=== PATIENT | male | born 1950 | race Two or more races ===

== ENCOUNTER 2018-10-29 17:11 | Emergency (ER) | payer MEDICARE, OTHER ==
[2018-10-29 17:27] VITALS: TEMP 99.9; BMI 27.4
[2018-10-29] MEDS ORDERED: FOLIC ACID INJECTION - 1 MG, THIAMINE HCL 100 MG, MULTIVIT INJECTION ADULT 10 ML in SOD... IVPB ONE (17:47)
[2018-10-29] MEDS ORDERED: LORazepam 2 MG/ML SDV VIAL ONE (17:51)
[2018-10-29] MEDS ORDERED: RAPID SEQUENCE INTUBATION KIT NR ONE (18:02)
[2018-10-29] MEDS ORDERED: DEXTROSE 50%-WATER 25 GM/50 ML DISP.SYRIN ONE (18:02)
[2018-10-29] MEDS ORDERED: PROPOFOL 1,000,000 MCG/100 ML VIAL ONE (18:16)
[2018-10-29] MEDS ORDERED: SODIUM CHLORIDE 0.9% 1000 ML INFUS.BAG IV ONE ×2 (18:18→18:21)
[2018-10-29] MEDS ORDERED: ETOMIDATE 20 MG/10 ML AMPUL IVPUSH ONE (18:19)
[2018-10-29] MEDS ORDERED: DEXTROSE 50%-WATER - 25 GM/50 ML VIAL IVPUSH ONE (18:19)
[2018-10-29] MEDS ORDERED: ROCURONIUM BROMIDE 50 MG/5 ML VIAL IV ONE (18:20)
[2018-10-29] MEDS ORDERED: DIPHTH,PERTUSS(ACELL),TET 0.5 ML DISP.SYRIN IM ONE ×2 (18:26→20:39)
[2018-10-29] MEDS ORDERED: PROPOFOL 1,000,000 MCG/100 ML VIAL IVPB SCH (18:30)
--- NOTE | 2018-10-29 18:34 | PDOC ---
History of Present Illness <Juwan Perry - Last Filed: 10/29/18 23:31> - General History Source: EMS, Old Records Exam Limitations: Clinical Condition - History of Present Illness Initial Comments: 10/29/18 19:15 [id number] with h/o EtOH use disorder was BIBEMS from [facility] for altered mental status and fall. The extent of my initial information was gathered while trying to calm and restrain the agitated/combative patient. All of my initial information was obtained from the ED RN team as passed down from EMS, which was passed down from [facility] staff. The patient reportedly was found to be altered and unresponsive to his name while standing in a room a [facility], when he fell to the ground, possibly striking his head in the process. [facility] staff had reported that he had fallen multiple times recently at their facility and had multiple known large bruises all over the body as well as skin tears. 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) Seizures: No Thyroid Disease: No - Surgical History Abdominal Surgery: No Appendectomy: No Cardiac Surgery: No Cholecystectomy: Yes Lung Surgery: No Neurologic Surgery: No Orthopedic Surgery: No - Reproductive History Testicular Surgery: No - Suicide/Smoking/Psychosocial Hx Smoking History: Unknown if ever smoked Have you smoked in the past 12 months: Yes Number of Cigarettes Smoked Daily: 3 Cigars Per Day: 0 Information on smoking cessation initiated: No 'Breaking Loose' booklet given: 07/25/17 Hx Alcohol Use: Yes Drug/Substance Use Hx: No Substance Use Type: Alcohol, Marijuana Hx Substance Use Treatment: Yes ([facility]) <Sultana Ladd - Last Filed: 10/31/18 17:37> - Past Medical History Allergies/Adverse Reactions: Allergies Allergy/AdvReac Type Severity Reaction Status Date / Time No Known Allergies Allergy Verified 07/25/17 18:11 Home Medications: Ambulatory Orders Valsartan [Diovan] 160 mg PO DAILY #30 tablet 07/25/13 metFORMIN HCL [Glucophage -] 500 mg PO DAILY 03/18/15 Risperidone [Risperdal -] 2 mg PO HS #30 tablet 04/01/15 Review of Systems - Review of Systems Able to Perform ROS?: No (agitated/combative) <Sultana Ladd - Last Filed: 10/31/18 17:37> *Physical Exam - Vital Signs Last Vital Signs Temp Pulse Resp BP Pulse Ox 99.9 F H 58 L 11 77/58 L 100 10/29/18 17:25 10/29/18 22:37 10/29/18 22:37 10/29/18 22:37 10/29/18 22:37 <Juwan Perry - Last Filed: 10/29/18 23:31> - Vital Signs Last Vital Signs Temp Pulse Resp BP Pulse Ox 99.9 F H 114 H 26 H 108/78 98 10/29/18 17:25 10/29/18 17:25 10/29/18 17:25 10/29/18 17:25 10/29/18 17:25 - Physical Exam Comments: TRAUMA ASSESSMENT: multiple ecchymoses scattered around body with large ecchymosis to left lower flank extending from left medial paraspinous region to the area overlying the left ASIS, multiple skin tears measuring up to 3cm diameter including overlying right knee and right hindu, initially protecting airway, equal bilateral breath sounds, no flail chest, abdomen soft, pelvis stable, no thigh hematoma, no midline vertebral stepoff or deformity, pupils 2 mm and reactive to light, moving all extremities, no scalp contusion, no cephalohematoma, no scalp laceration, no raccoon eyes, no jim sign, no hemotympanum, no CSF rhinorrhea/otorrhea, no jaw malocclusion. GENERAL: obtunded, agitated, very combative, unable to answer questions, moaning noises but no coherent speech, makes fleeting eye contact but does not track examiner or seem to acknowledge that anyone else is in the room with him, responds to noxious stimuli HEENT: PERRLA, EOMI, very dry mucous membranes NECK/BACK: no spinal stepoff or deformity, no hematoma, neck supple CARDIOVASCULAR: rapid regular rate, normal S1S2, no MGR, capillary refill <2 seconds, extremities wwp, no edema LUNGS/RESPIRATORY: nononlabored respirations, lungs CTAB GI/ABDOMEN: old midline vertical scar which is well-healed, symmetric side-to- side, normoactive BS, soft, no midline pulsatile masses, no organomegaly, easily -reducible hernia noted : normal external appearance, no lesions, no swelling, non-malodorous EXTREMITIES: no muscle atrophy, no acute deformity, no edema, but multiple bruises and skin tears, one medium-sized 5cm ecchymosis overlying medial left knee SKIN: very dry, no pallor, no jaundice NEUROLOGICAL: Not alert or oriented, agitated and combative, GCS is CN II-XII grossly intact, no obvious facial droop, otherwise patient is unable to participate in exam <Sultana Ladd - Last Filed: 10/31/18 17:37> Procedures - Additional Procedures Progress: Femoral Central Line Procedure Note (U/S) INDICATION: Hypotension in critically ill patient PROCEDURE [employer]ER: Juwan Perry M.D. resident ATTENDING PHYSICIAN: Dr. Merchant In Attendance (Y/N) Y CONSENT: The procedure was performed emergently and the permission was implied because of the emergent nature. PROCEDURE SUMMARY: A time out was performed. My hands were washed immediately prior to the procedure. I wore a surgical cap, mask with protective eyewear, full gown and sterile gloves throughout the procedure. The patient was placed in supine position. Right inguinal region was prepped using chlorhexidine scrub and draped in sterile fashion using a surgical drape. The femoral pulse was palpated. The femoral vein was identified using the ultrasound. Anesthesia was achieved over the vein using 1% lidocaine. Using real-time out of plane guidance , the introducer needle was inserted into the femoral vein under direct ultrasound visualization. Venous blood was withdrawn. The syringe was removed and a guidewire was advanced into the introducer needle. The guidewire was visualized in the femoral vein by ultrasound. A small incision was made at the skin surface with a scalpel and the introducer needle was exchanged for a dilator over the guidewire. After appropriate dilation was obtained, the dilator was exchanged over the wire for a triple lumen central venous catheter. The wire was removed and the catheter was sutured in place. A bio patch impregnated sterile tegaderm was placed at the insertion site. The patient tolerated the procedure without any hemodynamic compromise. At time of procedure completion, all ports aspirated and flushed properly. Estimated blood loss is <5cc. <Juwan Perry - Last Filed: 10/29/18 23:31> ED Treatment Course - LABORATORY CBC & Chemistry Diagram: 10/29/18 19:50 10/29/18 19:53 - ADDITIONAL ORDERS Additional order review: Laboratory Results 10/29/18 10/29/18 10/29/18 22:31 21:55 19:53 PT with INR INR Anticoagulation Therapy No Result Required. Puncture Site Left radial Patient Temperature ABG pH 7.12 L* ABG pCO2 at Pt Temp 49.8 H ABG pO2 at Pt Temp 320 H ABG HCO3 15.6 L ABG O2 Sat (Measured) 99.2 H ABG O2 Content 22.9 H ABG Base Excess -14.2 L Raad Test Positive Carboxyhemoglobin 0.5 Methemoglobin 0.2 O2 Delivery Device No Result Required. Oxygen Flow Rate Yes Vent Mode A/c Vent Rate 12 Mechanical Rate Yes PEEP 5.0 Pressure Support Vent No Result Required. Sodium 135 L Potassium 5.2 H Chloride 107 Carbon Dioxide 16 L Anion Gap 12 BUN 93.2 H Creatinine 2.7 H Est GFR (CKD-EPI)AfAm 27.04 Est GFR (CKD-EPI)NonAf 23.33 POC Glucometer 127 Random Glucose 126 H Lactic Acid Calcium 7.5 L Magnesium 2.6 H Total Bilirubin 2.5 H AST 62 H ALT 52 Alkaline Phosphatase 165 H Ammonia Creatine Kinase 201 Creatine Kinase Index 3.1 CK-MB (CK-2) 6.3 H Troponin I 0.07 H Total Protein 5.7 L Albumin 2.6 L Lipase 86 Urine Color Urine Appearance Urine pH Ur Specific [place] Urine Protein Urine Glucose (UA) Urine Ketones Urine Blood Urine Nitrite Urine Bilirubin Urine Urobilinogen Ur Leukocyte Esterase Urine WBC (Auto) Urine RBC (Auto) Urine Casts (Auto) U Epithel Cells (Auto) Urine Bacteria (Auto) Salicylates Opiates Screen Methadone Screen Acetaminophen Barbiturate Screen Phencyclidine Screen Ur Amphetamines Screen MDMA (Ecstasy) Screen Benzodiazepines Screen Cocaine Screen U Marijuana (THC) Screen Alcohol, Quantitative Blood Type Antibody Screen 10/29/18 10/29/18 10/29/18 19:50 19:50 18:28 PT with INR INR Anticoagulation Therapy Cancelled Puncture Site Cancelled Patient Temperature Cancelled ABG pH Cancelled ABG pCO2 at Pt Temp Cancelled ABG pO2 at Pt Temp Cancelled ABG HCO3 Cancelled ABG O2 Sat (Measured) Cancelled ABG O2 Content Cancelled ABG Base Excess Cancelled Raad Test Cancelled Carboxyhemoglobin Cancelled Methemoglobin Cancelled O2 Delivery Device Cancelled Oxygen Flow Rate Cancelled Vent Mode Cancelled Vent Rate Cancelled Mechanical Rate Cancelled PEEP Cancelled Pressure Support Vent Cancelled Sodium Potassium Chloride Carbon Dioxide Anion Gap BUN Creatinine Est GFR (CKD-EPI)AfAm Est GFR (CKD-EPI)NonAf POC Glucometer Random Glucose Lactic Acid 2.2 H* Calcium Magnesium Total Bilirubin AST ALT Alkaline Phosphatase Ammonia Creatine Kinase Creatine Kinase Index CK-MB (CK-2) Troponin I Total Protein Albumin Lipase Urine Color Urine Appearance Urine pH Ur Specific [place] Urine Protein Urine Glucose (UA) Urine Ketones Urine Blood Urine Nitrite Urine Bilirubin Urine Urobilinogen Ur Leukocyte Esterase Urine WBC (Auto) Urine RBC (Auto) Urine Casts (Auto) U Epithel Cells (Auto) Urine Bacteria (Auto) Salicylates Opiates Screen Methadone Screen Acetaminophen Barbiturate Screen Phencyclidine Screen Ur Amphetamines Screen MDMA (Ecstasy) Screen Benzodiazepines Screen Cocaine Screen U Marijuana (THC) Screen Alcohol, Quantitative Blood Type O POSITIVE Antibody Screen Negative 10/29/18 10/29/18 10/29/18 18:28 18:28 18:28 PT with INR INR Anticoagulation Therapy Puncture Site Patient Temperature ABG pH ABG pCO2 at Pt Temp ABG pO2 at Pt Temp ABG HCO3 ABG O2 Sat (Measured) ABG O2 Content ABG Base Excess Raad Test Carboxyhemoglobin Methemoglobin O2 Delivery Device Oxygen Flow Rate Vent Mode Vent Rate Mechanical Rate PEEP Pressure Support Vent Sodium Potassium Chloride Carbon Dioxide Anion Gap BUN Creatinine Est GFR (CKD-EPI)AfAm Est GFR (CKD-EPI)NonAf POC Glucometer Random Glucose Lactic Acid 4.1 H* Calcium Magnesium Total Bilirubin AST ALT Alkaline Phosphatase Ammonia 35.20 H Creatine Kinase Creatine Kinase Index CK-MB (CK-2) Troponin I Total Protein Albumin Lipase Urine Color Urine Appearance Urine pH Ur Specific [place] Urine Protein Urine Glucose (UA) Urine Ketones Urine Blood Urine Nitrite Urine Bilirubin Urine Urobilinogen Ur Leukocyte Esterase Urine WBC (Auto) Urine RBC (Auto) Urine Casts (Auto) U Epithel Cells (Auto) Urine Bacteria (Auto) Salicylates Opiates Screen Negative Methadone Screen Negative Acetaminophen Barbiturate Screen Negative Phencyclidine Screen Negative Ur Amphetamines Screen Negative MDMA (Ecstasy) Screen Negative Benzodiazepines Screen Negative Cocaine Screen Negative U Marijuana (THC) Screen Negative Alcohol, Quantitative Blood Type Antibody Screen 10/29/18 10/29/18 10/29/18 18:28 18:28 18:22 PT with INR 17.60 H INR 1.49 H Anticoagulation Therapy Puncture Site Patient Temperature ABG pH ABG pCO2 at Pt Temp ABG pO2 at Pt Temp ABG HCO3 ABG O2 Sat (Measured) ABG O2 Content ABG Base Excess Raad Test Carboxyhemoglobin Methemoglobin O2 Delivery Device Oxygen Flow Rate Vent Mode Vent Rate Mechanical Rate PEEP Pressure Support Vent Sodium 137 Potassium 5.0 Chloride 104 Carbon Dioxide 19 L Anion Gap 13 BUN 95.0 H Creatinine 2.8 H Est GFR (CKD-EPI)AfAm 25.88 Est GFR (CKD-EPI)NonAf 22.33 POC Glucometer Random Glucose 64 L Lactic Acid Calcium 8.3 L Magnesium Total Bilirubin 2.0 H AST 56 H ALT 50 Alkaline Phosphatase 144 H Ammonia Creatine Kinase Creatine Kinase Index CK-MB (CK-2) Troponin I Total Protein 5.6 L Albumin 2.6 L Lipase 80 Urine Color Dk yellow Urine Appearance Cloudy Urine pH 5.0 D Ur Specific [place] 1.019 Urine Protein 1+ H Urine Glucose (UA) Negative Urine Ketones Negative Urine Blood Negative Urine Nitrite Negative Urine Bilirubin 1+ H Urine Urobilinogen 1.0 Ur Leukocyte Esterase Negative Urine WBC (Auto) 4 Urine RBC (Auto) 4 Urine Casts (Auto) 43 U Epithel Cells (Auto) 3.2 Urine Bacteria (Auto) 1.9 Salicylates 3.6 Opiates Screen Methadone Screen Acetaminophen 3.7 L Barbiturate Screen Phencyclidine Screen Ur Amphetamines Screen MDMA (Ecstasy) Screen Benzodiazepines Screen Cocaine Screen U Marijuana (THC) Screen Alcohol, Quantitative < 3.0 Blood Type Antibody Screen 10/29/18 17:53 PT with INR INR Anticoagulation Therapy Puncture Site Patient Temperature ABG pH ABG pCO2 at Pt Temp ABG pO2 at Pt Temp ABG HCO3 ABG O2 Sat (Measured) ABG O2 Content ABG Base Excess Raad Test Carboxyhemoglobin Methemoglobin O2 Delivery Device Oxygen Flow Rate Vent Mode Vent Rate Mechanical Rate PEEP Pressure Support Vent Sodium Potassium Chloride Carbon Dioxide Anion Gap BUN Creatinine Est GFR (CKD-EPI)AfAm Est GFR (CKD-EPI)NonAf POC Glucometer 82 Random Glucose Lactic Acid Calcium Magnesium Total Bilirubin AST ALT Alkaline Phosphatase Ammonia Creatine Kinase Creatine Kinase Index CK-MB (CK-2) Troponin I Total Protein Albumin Lipase Urine Color Urine Appearance Urine pH Ur Specific [place] Urine Protein Urine Glucose (UA) Urine Ketones Urine Blood Urine Nitrite Urine Bilirubin Urine Urobilinogen Ur Leukocyte Esterase Urine WBC (Auto) Urine RBC (Auto) Urine Casts (Auto) U Epithel Cells (Auto) Urine Bacteria (Auto) Salicylates Opiates Screen Methadone Screen Acetaminophen Barbiturate Screen Phencyclidine Screen Ur Amphetamines Screen MDMA (Ecstasy) Screen Benzodiazepines Screen Cocaine Screen U Marijuana (THC) Screen Alcohol, Quantitative Blood Type Antibody Screen 10/29/18 10/29/18 10/29/18 22:31 19:50 18:28 RBC 5.38 5.25 MCV 95.6 95.0 MCHC 32.1 32.4 RDW 16.4 H 16.2 H MPV 10.2 11.0 D Neutrophils % 97.0 H 97.2 H Lymphocytes % 1.4 L 1.6 L Monocytes % 0.8 L 1.0 L Eosinophils % 0.6 D 0.1 Basophils % 0.2 0.1 POC Glucometer 127 10/29/18 17:53 RBC MCV MCHC RDW MPV Neutrophils % Lymphocytes % Monocytes % Eosinophils % Basophils % POC Glucometer 82 - Medications Given in the ED: ED Medications Discontinued Medications Generic Name Dose Route Start Last Admin Trade Name Darrelq PRN Reason Stop Dose Admin Dexamethasone Sodium Phosphate 10 mg 10/29/18 20:01 10/29/18 21:00 Decadron Injection - IVPUSH 10/29/18 20:02 10 mg ONCE ONE Administration Dextrose 25 gm 10/29/18 18:19 10/29/18 18:12 D50w (Vial) - IVPUSH 10/29/18 18:20 25 gm NOW ONE Administration Diphtheria/Tetanus/Acell Pertussis 0.5 ml 10/29/18 18:26 10/29/18 20:58 Boostrix - IM 10/29/18 18:27 0.5 ml .ONCE ONE Administration Etomidate 20 mg 10/29/18 18:19 10/29/18 18:08 Amidate - IVPUSH 10/29/18 18:20 20 mg ONCE ONE Administration Ceftriaxone Sodium 2,000 mg/ 50 mls @ 100 mls/hr 10/29/18 20:01 10/29/18 21: 00 Dextrose IVPB 10/29/18 20:30 100 mls/hr ONCE ONE Administration Vancomycin HCl 1,500 mg/ 500 mls @ 250 mls/hr 10/29/18 20:02 10/29/18 21:10 Dextrose IVPB 10/29/18 22:01 250 mls/hr ONCE ONE Administration Lorazepam 2 mg 10/29/18 18:22 10/29/18 17:51 Ativan Injection - IVPUSH 10/29/18 18:23 2 mg ONCE ONE Administration Rocuronium [place] 80 mg 10/29/18 18:20 10/29/18 18:11 Zemuron - IV 10/29/18 18:21 80 mg ONCE ONE Administration Sodium Chloride 1,000 ml 10/29/18 18:18 10/29/18 18:00 Normal Saline - IV 10/29/18 18:19 1,000 ml ONCE ONE Administration Sodium Chloride 1,000 ml 10/29/18 18:21 10/29/18 18:21 Normal Saline - IV 10/29/18 18:22 1,000 ml ONCE ONE Administration <Juwan Perry - Last Filed: 10/29/18 23:31> - LABORATORY CBC & Chemistry Diagram: 10/29/18 19:50 10/29/18 19:53 - ADDITIONAL ORDERS Additional order review: Laboratory Results 10/29/18 17:53 POC Glucometer 82 10/29/18 17:53 POC Glucometer 82 - RADIOLOGY Radiology Studies Ordered: Category Date Time Status HEAD CT WITHOUT CONTRAST [CT] Stat CT Scan 10/29/18 17:47 Ordered CHEST X-RAY PORTABLE* [RAD] Stat Radiology 10/29/18 17:47 Ordered <Sultana Ladd - Last Filed: 10/31/18 17:37> Medical Decision Making - Critical Care Time Total Critical Care Time (minutes): 90 Critical Care Statement: The care of this patient involved high complexity decision making to prevent further life threatening deterioration of the patient 's condition and/or to evaluate & treat vital organ system(s) failure or risk of failure. - Medical Decision Making [id number] with h/o EtOH use disorder BIBEMS from [facility] for AMS, fall. Per EMS truncated report passed down from [facility] staff, patient had witnessed fall just [employer]. He had reportedly been standing/staring off and not responding to his name just prior to the fall. This is reportedly far from his baseline. Reportedly [facility] staff had noted he has fallen multiple times recently and has many bruises. Reportedly his pupils were pinpoint but [facility] staff did not believe he had access to substances. Initial Vital Signs Temp Pulse Resp BP Pulse Ox 99.9 F H 114 H 26 H 108/78 98 10/29/18 17:25 10/29/18 17:25 10/29/18 17:25 10/29/18 17:25 10/29/18 17:25 10/29/18 18:25 I entered the patient's room at 17:35 and saw him very agitated, multiple large bruises, skin tears He is very strong, requires 4+ ED staff to hold him down, not following commands , combative. He is a danger to himself and to others and requires ativan 2 mg IV push. PIV placed and labs drawn, Ativan given IVPUSH, partial relief of agitation/ combativeness but still a danger. The patient requires additional chemical restraint (to the point of needing RSI ) as well as limb restraints x4. We transferred the patient to the code room, RSI with etomidate and rocuronium, propofol drop for sedation. Rocuronium chosen d/t extensive bruising and risk for rhabdo/hyperkalemia. Propofol chosen to potentiate JANE and raise seizure threshold. Patient was satting 100% on SpO2 monitor just prior to RSI attempt. 2 attempts made, secretions noted and suctioned, 7.5 ETT passed, inflated, secured. Bilateral equal breath sounds with good ETCO2 color change, subsequent SpO2 100% . We are very concerned about ICH in this severely altered patient given acute onset and known falls/trauma. CT scans ordered as documented below. 10/29/18 18:48 No known allergies to IV contrast per patient's prior [facility] and [facility] records. The patient is unable to consent for IV contrast but he absolutely needs it for trauma ch-scan. Physician consent signed for contrast in CT department and patient tolerates well. Laboratory Tests 10/29/18 10/29/18 10/29/18 17:53 18:22 18:28 WBC 24.6 H RBC 5.25 Hgb 16.1 Hct 49.9 H D MCV 95.0 MCH 30.7 MCHC 32.4 RDW 16.2 H Plt Count 133 L D MPV 11.0 D Absolute Neuts (auto) 24.0 H Neutrophils % 97.2 H Neutrophils % (Manual) 64.0 Band Neutrophils % 30.0 Lymphocytes % 1.6 L Lymphocytes % (Manual) 0.0 L Monocytes % 1.0 L Monocytes % (Manual) 6 Eosinophils % 0.1 Eosinophils % (Manual) 0.0 Basophils % 0.1 Basophils % (Manual) 0.0 Nucleated RBC % 0 Metamyelocytes Platelet Estimate Slt decrease Platelet Comment No clumping noted PT with INR INR Anticoagulation Therapy Puncture Site Patient Temperature ABG pH ABG pCO2 at Pt Temp ABG pO2 at Pt Temp ABG HCO3 ABG O2 Sat (Measured) ABG O2 Content ABG Base Excess Raad Test Carboxyhemoglobin Methemoglobin O2 Delivery Device Oxygen Flow Rate Vent Mode Vent Rate Mechanical Rate PEEP Pressure Support Vent Sodium Potassium Chloride Carbon Dioxide Anion Gap BUN Creatinine Est GFR (CKD-EPI)AfAm Est GFR (CKD-EPI)NonAf POC Glucometer 82 Random Glucose Lactic Acid Calcium Magnesium Total Bilirubin AST ALT Alkaline Phosphatase Ammonia Creatine Kinase Creatine Kinase Index CK-MB (CK-2) Troponin I Total Protein Albumin Lipase Urine Color Dk yellow Urine Appearance Cloudy Urine pH 5.0 D Ur Specific [place] 1.019 Urine Protein 1+ H Urine Glucose (UA) Negative Urine Ketones Negative Urine Blood Negative Urine Nitrite Negative Urine Bilirubin 1+ H Urine Urobilinogen 1.0 Ur Leukocyte Esterase Negative Urine WBC (Auto) 4 Urine RBC (Auto) 4 Urine Casts (Auto) 43 U Epithel Cells (Auto) 3.2 Urine Bacteria (Auto) 1.9 Salicylates Opiates Screen Methadone Screen Acetaminophen Barbiturate Screen Phencyclidine Screen Ur Amphetamines Screen MDMA (Ecstasy) Screen Benzodiazepines Screen Cocaine Screen U Marijuana (THC) Screen Alcohol, Quantitative Blood Type Antibody Screen 10/29/18 10/29/18 10/29/18 18:28 18:28 18:28 WBC RBC Hgb Hct MCV MCH MCHC RDW Plt Count MPV Absolute Neuts (auto) Neutrophils % Neutrophils % (Manual) Band Neutrophils % Lymphocytes % Lymphocytes % (Manual) Monocytes % Monocytes % (Manual) Eosinophils % Eosinophils % (Manual) Basophils % Basophils % (Manual) Nucleated RBC % Metamyelocytes Platelet Estimate Platelet Comment PT with INR 17.60 H INR 1.49 H Anticoagulation Therapy Puncture Site Patient Temperature ABG pH ABG pCO2 at Pt Temp ABG pO2 at Pt Temp ABG HCO3 ABG O2 Sat (Measured) ABG O2 Content ABG Base Excess Raad Test Carboxyhemoglobin Methemoglobin O2 Delivery Device Oxygen Flow Rate Vent Mode Vent Rate Mechanical Rate PEEP Pressure Support Vent Sodium 137 Potassium 5.0 Chloride 104 Carbon Dioxide 19 L Anion Gap 13 BUN 95.0 H Creatinine 2.8 H Est GFR (CKD-EPI)AfAm 25.88 Est GFR (CKD-EPI)NonAf 22.33 POC Glucometer Random Glucose 64 L Lactic Acid Calcium 8.3 L Magnesium Total Bilirubin 2.0 H AST 56 H ALT 50 Alkaline Phosphatase 144 H Ammonia 35.20 H Creatine Kinase Creatine Kinase Index CK-MB (CK-2) Troponin I Total Protein 5.6 L Albumin 2.6 L Lipase 80 Urine Color Urine Appearance Urine pH Ur Specific [place] Urine Protein Urine Glucose (UA) Urine Ketones Urine Blood Urine Nitrite Urine Bilirubin Urine Urobilinogen Ur Leukocyte Esterase Urine WBC (Auto) Urine RBC (Auto) Urine Casts (Auto) U Epithel Cells (Auto) Urine Bacteria (Auto) Salicylates 3.6 Opiates Screen Methadone Screen Acetaminophen 3.7 L Barbiturate Screen Phencyclidine Screen Ur Amphetamines Screen MDMA (Ecstasy) Screen Benzodiazepines Screen Cocaine Screen U Marijuana (THC) Screen Alcohol, Quantitative < 3.0 Blood Type Antibody Screen 10/29/18 10/29/18 10/29/18 18:28 18:28 18:28 WBC RBC Hgb Hct MCV MCH MCHC RDW Plt Count MPV Absolute Neuts (auto) Neutrophils % Neutrophils % (Manual) Band Neutrophils % Lymphocytes % Lymphocytes % (Manual) Monocytes % Monocytes % (Manual) Eosinophils % Eosinophils % (Manual) Basophils % Basophils % (Manual) Nucleated RBC % Metamyelocytes Platelet Estimate Platelet Comment PT with INR INR Anticoagulation Therapy Puncture Site Patient Temperature ABG pH ABG pCO2 at Pt Temp ABG pO2 at Pt Temp ABG HCO3 ABG O2 Sat (Measured) ABG O2 Content ABG Base Excess Raad Test Carboxyhemoglobin Methemoglobin O2 Delivery Device Oxygen Flow Rate Vent Mode Vent Rate Mechanical Rate PEEP Pressure Support Vent Sodium Potassium Chloride Carbon Dioxide Anion Gap BUN Creatinine Est GFR (CKD-EPI)AfAm Est GFR (CKD-EPI)NonAf POC Glucometer Random Glucose Lactic Acid 4.1 H* Calcium Magnesium Total Bilirubin AST ALT Alkaline Phosphatase Ammonia Creatine Kinase Creatine Kinase Index CK-MB (CK-2) Troponin I Total Protein Albumin Lipase Urine Color Urine Appearance Urine pH Ur Specific [place] Urine Protein Urine Glucose (UA) Urine Ketones Urine Blood Urine Nitrite Urine Bilirubin Urine Urobilinogen Ur Leukocyte Esterase Urine WBC (Auto) Urine RBC (Auto) Urine Casts (Auto) U Epithel Cells (Auto) Urine Bacteria (Auto) Salicylates Opiates Screen Negative Methadone Screen Negative Acetaminophen Barbiturate Screen Negative Phencyclidine Screen Negative Ur Amphetamines Screen Negative MDMA (Ecstasy) Screen Negative Benzodiazepines Screen Negative Cocaine Screen Negative U Marijuana (THC) Screen Negative Alcohol, Quantitative Blood Type O POSITIVE Antibody Screen Negative 10/29/18 10/29/18 10/29/18 19:50 19:50 19:50 WBC 28.3 H RBC 5.38 Hgb 16.5 Hct 51.4 H MCV 95.6 MCH 30.7 MCHC 32.1 RDW 16.4 H Plt Count 114 L MPV 10.2 Absolute Neuts (auto) 27.5 H Neutrophils % 97.0 H Neutrophils % (Manual) 72.0 Band Neutrophils % 24.0 Lymphocytes % 1.4 L Lymphocytes % (Manual) 1.0 L D Monocytes % 0.8 L Monocytes % (Manual) 0 L D Eosinophils % 0.6 D Eosinophils % (Manual) 1.0 D Basophils % 0.2 Basophils % (Manual) 0.0 Nucleated RBC % 0 Metamyelocytes 2 Platelet Estimate Decreased Platelet Comment No clumping noted PT with INR INR Anticoagulation Therapy Cancelled Puncture Site Cancelled Patient Temperature Cancelled ABG pH Cancelled ABG pCO2 at Pt Temp Cancelled ABG pO2 at Pt Temp Cancelled ABG HCO3 Cancelled ABG O2 Sat (Measured) Cancelled ABG O2 Content Cancelled ABG Base Excess Cancelled Raad Test Cancelled Carboxyhemoglobin Cancelled Methemoglobin Cancelled O2 Delivery Device Cancelled Oxygen Flow Rate Cancelled Vent Mode Cancelled Vent Rate Cancelled Mechanical Rate Cancelled PEEP Cancelled Pressure Support Vent Cancelled Sodium Potassium Chloride Carbon Dioxide Anion Gap BUN Creatinine Est GFR (CKD-EPI)AfAm Est GFR (CKD-EPI)NonAf POC Glucometer Random Glucose Lactic Acid 2.2 H* Calcium Magnesium Total Bilirubin AST ALT Alkaline Phosphatase Ammonia Creatine Kinase Creatine Kinase Index CK-MB (CK-2) Troponin I Total Protein Albumin Lipase Urine Color Urine Appearance Urine pH Ur Specific [place] Urine Protein Urine Glucose (UA) Urine Ketones Urine Blood Urine Nitrite Urine Bilirubin Urine Urobilinogen Ur Leukocyte Esterase Urine WBC (Auto) Urine RBC (Auto) Urine Casts (Auto) U Epithel Cells (Auto) Urine Bacteria (Auto) Salicylates Opiates Screen Methadone Screen Acetaminophen Barbiturate Screen Phencyclidine Screen Ur Amphetamines Screen MDMA (Ecstasy) Screen Benzodiazepines Screen Cocaine Screen U Marijuana (THC) Screen Alcohol, Quantitative Blood Type Antibody Screen 10/29/18 10/29/18 10/29/18 19:53 21:55 22:31 WBC RBC Hgb Hct MCV MCH MCHC RDW Plt Count MPV Absolute Neuts (auto) Neutrophils % Neutrophils % (Manual) Band Neutrophils % Lymphocytes % Lymphocytes % (Manual) Monocytes % Monocytes % (Manual) Eosinophils % Eosinophils % (Manual) Basophils % Basophils % (Manual) Nucleated RBC % Metamyelocytes Platelet Estimate Platelet Comment PT with INR INR Anticoagulation Therapy No Result Required. Puncture Site Left radial Patient Temperature ABG pH 7.12 L* ABG pCO2 at Pt Temp 49.8 H ABG pO2 at Pt Temp 320 H ABG HCO3 15.6 L ABG O2 Sat (Measured) 99.2 H ABG O2 Content 22.9 H ABG Base Excess -14.2 L Raad Test Positive Carboxyhemoglobin 0.5 Methemoglobin 0.2 O2 Delivery Device No Result Required. Oxygen Flow Rate Yes Vent Mode A/c Vent Rate 12 Mechanical Rate Yes PEEP 5.0 Pressure Support Vent No Result Required. Sodium 135 L Potassium 5.2 H Chloride 107 Carbon Dioxide 16 L Anion Gap 12 BUN 93.2 H Creatinine 2.7 H Est GFR (CKD-EPI)AfAm 27.04 Est GFR (CKD-EPI)NonAf 23.33 POC Glucometer 127 Random Glucose 126 H Lactic Acid Calcium 7.5 L Magnesium 2.6 H Total Bilirubin 2.5 H AST 62 H ALT 52 Alkaline Phosphatase 165 H Ammonia Creatine Kinase 201 Creatine Kinase Index 3.1 CK-MB (CK-2) 6.3 H Troponin I 0.07 H Total Protein 5.7 L Albumin 2.6 L Lipase 86 Urine Color Urine Appearance Urine pH Ur Specific [place] Urine Protein Urine Glucose (UA) Urine Ketones Urine Blood Urine Nitrite Urine Bilirubin Urine Urobilinogen Ur Leukocyte Esterase Urine WBC (Auto) Urine RBC (Auto) Urine Casts (Auto) U Epithel Cells (Auto) Urine Bacteria (Auto) Salicylates Opiates Screen Methadone Screen Acetaminophen Barbiturate Screen Phencyclidine Screen Ur Amphetamines Screen MDMA (Ecstasy) Screen Benzodiazepines Screen Cocaine Screen U Marijuana (THC) Screen Alcohol, Quantitative Blood Type Antibody Screen RAD/CHEST X-RAY PORTABLE* Chest: Altered mental status Single AP view of the chest reveals an endotracheal tube with tip well above arnold, NG tube tip in distal esophagus which needs to be advanced approximately 13 cm. There is a large heart, and folded aorta, prominent hilar markings and clear lung real. The ends are sharp and the soft tissues are intact. Impression: ET tube and clavicular head level. NG tube in distal esophagus. Please advance 13 cm to be in the stomach. Clear lungs. Large heart. CT/CERVICAL SPINE CT W/O CONTR Cervical spine CT without contrast Clinical impression given: status post fall Multiplanar imaging was performed. No fracture or posttraumatic malalignment is identified. Multilevel ossification of the anterior longitudinal ligament is noted. There is mild to moderate multilevel degenerative disc space narrowing. Evaluation of the prevertebral soft tissues is limited due to traversing endotracheal and nasogastric tubes in place. The paraspinal soft tissues demonstrate no obvious pathology. Impression : No fracture is seen. CT/FACIAL BONES CT W/O CONTRAST Facial bones CT without contrast Clinical information: trauma Multiplanar imaging was performed. A depressed fracture is seen involving the right nasal bone as well as the nasal bridge. Overlying soft tissue edema is noted. there is focal deformity of the osseous nasal septum ventrally which is probably chronic. No obvious associated fracture line is seen. The remaining maxillofacial and orbital osseous structures appear intact. A small amount of fluid is noted within the left mastoid air cells. A nasogastric tube is seen in place which loops within the oropharynx. An endotracheal tube is also noted. Dental/periodontal disease. Impression: Acute nasal fracture. CT/HEAD CT WITHOUT CONTRAST Cranial CT without contrast Clinical information given: altered Multiplanar imaging was performed. Intravenous contrast was not administered. No prior imaging studies are available at this facility for direct comparison. A possible small hemorrhagic cortical contusion is seen along the left frontal opercular region. This region is partially obscured due to beam hardening artifact. Correlate with follow-up CT. No CT evidence of calvarial fracture. There is no extra-axial fluid collection. No discrete infarct is identified within the limitations of CT. There is no obvious mass lesion on noncontrast imaging. The ventricles and cisterns appear unremarkable. Impression: Equivocal small left frontal hemorrhagic cortical contusion. This region is partially obscured due to beam hardening artifact arising from outside the calvarium. Correlate with follow-up CT. CT/CHEST CTA [id number] CT/ABDOMEN/PELVIS CTA W/WO CONTR Chest CT angiography Abdomen/pelvis CT angiography Clinical information given: fall, bleeding Multiplanar, multiphase imaging was performed following the intravenous administration of nonionic contrast. No prior imaging studies are available at this facility for direct comparison. Small bilateral pleural effusions are seen layering with associated mild bibasilar compressive atelectasis. No evidence of pneumothorax or pulmonary contusion. Several subtle bilateral rib fractures are noted which appear to be chronic on the basis of this exam. Correlate clinically. Probable mild cardiomegaly. No pericardial effusion is seen. There is no aortic aneurysm. No CT evidence of aortic injury. A mild T4 superior endplate compression fracture is seen without bony retropulsion. This fracture is probably subacute and less likely acute. Correlate clinically. The posterior elements appear intact. A mild chronic T12 vertebral body compression fracture is noted without bony retropulsion Concentric subcutaneous edema is seen along the length of the chest, abdomen and pelvis. An endotracheal tube is seen in place with the tip approximately 3.3 cm from the level of the tracheal bifurcation. A nasogastric tube is noted with the tip at the level of the mid to lower third of the thoracic esophagus. Looping of the nasogastric tube is seen at the level of the oropharynx on recently performed cervical spine CT. A small amount of free intraperitoneal fluid is seen within the abdomen and pelvis bilaterally which not appear to be hemorrhagic in nature. The kidneys bilaterally demonstrate numerous bilateral upper and lower pole low-attenuation foci suggestive of cortical infarcts which may be acute or chronic. The kidneys appear unremarkable in size. There is no hydronephrosis. Bilateral renal cortical cysts. 1.4 cm splenic artery aneurysm with peripheral rim calcification. There is absence of the gallbladder probably on a postsurgical basis. Correlate clinically. A small amount of air is seen within the intrahepatic and extrahepatic biliary tract possibly on a postprocedural basis. Correlate clinically. Status post ventral hernia repair. The liver, spleen, pancreas, and adrenal glands demonstrate no discrete abnormality. There is no aortic aneurysm. IMPRESSION: Small bilateral pleural effusions which appear to be nonhemorrhagic in nature. There is associated bibasilar compressive atelectasis. No pneumothorax is seen. Several subtle bilateral rib fractures are seen which are probably chronic. Correlate clinically. Mild cardiomegaly. A small amount of free fluid is seen within the abdomen and pelvis which appears to be nonhemorrhagic. Numerous bilateral renal hypodense cortical foci are noted within the upper and lower poles suggestive of infarcts which may be acute or chronic. A mild T4 vertebral body compression fracture is noted without bony retropulsion. This fracture is probably subacute and less likely acute. Correlate clinically. Follow-up imaging as clinically indicated. Mild chronic T12 vertebral body compression fracture without bony retropulsion. Concentric subcutaneous edema is visualized along the length of the chest, abdomen and pelvis. Endotracheal tube in place. A nasogastric tube is noted with the tip at the level of the mid to lower thoracic esophagus. 1.4 cm partially calcified splenic artery aneurysm. There is absence of the gallbladder which may be postsurgical. A small amount of pneumobilia is also visualized. CT/CHEST CTA [id number] CT/ABDOMEN/PELVIS CTA W/WO CONTR Chest CT angiography Abdomen/pelvis CT angiography Clinical information given: fall, bleeding Multiplanar, multiphase imaging was performed following the intravenous administration of nonionic contrast. No prior imaging studies are available at this facility for direct comparison. Small bilateral pleural effusions are seen layering with associated mild bibasilar compressive atelectasis. No evidence of pneumothorax or pulmonary contusion. Several subtle bilateral rib fractures are noted which appear to be chronic on the basis of this exam. Correlate clinically. Probable mild cardiomegaly. No pericardial effusion is seen. There is no aortic aneurysm. No CT evidence of aortic injury. A mild T4 superior endplate compression fracture is seen without bony retropulsion. This fracture is probably subacute and less likely acute. Correlate clinically. The posterior elements appear intact. A mild chronic T12 vertebral body compression fracture is noted without bony retropulsion Concentric subcutaneous edema is seen along the length of the chest, abdomen and pelvis. An endotracheal tube is seen in place with the tip approximately 3.3 cm from the level of the tracheal bifurcation. A nasogastric tube is noted with the tip at the level of the mid to lower third of the thoracic esophagus. Looping of the nasogastric tube is seen at the level of the oropharynx on recently performed cervical spine CT. A small amount of free intraperitoneal fluid is seen within the abdomen and pelvis bilaterally which not appear to be hemorrhagic in nature. The kidneys bilaterally demonstrate numerous bilateral upper and lower pole low-attenuation foci suggestive of cortical infarcts which may be acute or chronic. The kidneys appear unremarkable in size. There is no hydronephrosis. Bilateral renal cortical cysts. 1.4 cm splenic artery aneurysm with peripheral rim calcification. There is absence of the gallbladder probably on a postsurgical basis. Correlate clinically. A small amount of air is seen within the intrahepatic and extrahepatic biliary tract possibly on a postprocedural basis. Correlate clinically. Status post ventral hernia repair. The liver, spleen, pancreas, and adrenal glands demonstrate no discrete abnormality. There is no aortic aneurysm. IMPRESSION: Small bilateral pleural effusions which appear to be nonhemorrhagic in nature. There is associated bibasilar compressive atelectasis. No pneumothorax is seen. Several subtle bilateral rib fractures are seen which are probably chronic. Correlate clinically. Mild cardiomegaly. A small amount of free fluid is seen within the abdomen and pelvis which appears to be nonhemorrhagic. Numerous bilateral renal hypodense cortical foci are noted within the upper and lower poles suggestive of infarcts which may be acute or chronic. A mild T4 vertebral body compression fracture is noted without bony retropulsion. This fracture is probably subacute and less likely acute. Correlate clinically. Follow-up imaging as clinically indicated. Mild chronic T12 vertebral body compression fracture without bony retropulsion. Concentric subcutaneous edema is visualized along the length of the chest, abdomen and pelvis. Endotracheal tube in place. A nasogastric tube is noted with the tip at the level of the mid to lower thoracic esophagus. 1.4 cm partially calcified splenic artery aneurysm. There is absence of the gallbladder which may be postsurgical. A small amount of pneumobilia is also visualized. 10/29/18 20:[address] Dunbar with Cardiology for consult; likely we should not AC at this time. He recommends likely he needs no AC for 2-3 days and after that point needs neurologist and skate maker to decide. Dr. Merchant has spoken with Neurology and Nephrology in consult. Dr. Merchant has spoken with [facility] transfer [place] and the patient will be transferred ED-ED. Pt accepted in transfer to: Dr. Hernandez Transfer paperwork completed and signed by ED staff as patient is sedated/ intubated. 10/29/18 21:55 [facility] arranged to bring the patient to the [facility] MICU Patient's BP dipped to the 70s/40s and 4th liter IVF was started (patient does not appear volume overloaded, no crackles). Increases back to the 90s/60s after about 250cc infused. <Sultana Ladd - Last Filed: 10/31/18 17:37> *DC/Admit/Observation/Transfer <Juwan Perry - Last Filed: 10/29/18 23:31> - Discharge Dispostion Decision to Admit order: Yes - Transfer to Acute Care Facility Receiving Facility: [facility] <Sultana Ladd - Last Filed: 10/31/18 17:37> Diagnosis at time of Disposition: Renal infarction, Atrial flutter with rapid ventricular response, FARIDEH (acute kidney injury), Alcohol use disorder, Ventilator dependent, Splenic artery aneurysm Altered mental status Qualifiers: Altered mental status type: unspecified Qualified Code(s): R41.82 - Altered mental status, unspecified Multiple fractures of ribs of both sides Qualifiers: Fracture type: closed Thoracic vertebral fracture Qualifiers: Encounter type: initial encounter Thoracic vertebra fracture level: T4 Fracture type: closed Fracture morphology: unspecified fracture morphology Qualified Code(s): S22.049A - Unspecified fracture of fourth thoracic vertebra, initial encounter for closed fracture - Discharge Dispostion Disposition: TRANSFER ACUTE CARE/OTHER HOSP Condition at time of disposition: Guarded
[2018-10-29 19:00] LABS: BASO % 0.1 % (0-2.0); EOS % 0.1 % (0-4.5); HEMATOCRIT 49.9 % (35.4-49); HEMOGLOBIN 16.1 GM/dL (11.7-16.9); LYMPH % 1.6 % (8-40); MCH 30.7 pg (25.7-33.7); MCHC 32.4 g/dl (32.0-35.9); NEUT % 97.2 % (42.8-82.8); PLATELET COUNT 133 K/MM3 (134-434); RBC 5.25 M/mm3 (4.00-5.60); RDW 16.2 % (11.9-15.9); WHITE BLOOD COUNT 24.6 K/mm3 (4.0-10.0)
[2018-10-29 19:06] LABS: COCAINE, UR NEGATIVE ng/ml (CUTOFF=300); METHADONE, UR NEGATIVE ng/ml (CUTOFF=300); OPIATES, URI NEGATIVE ng/ml (CUTOFF=300); PHENCYCLIDINE,URINE NEGATIVE ng/ml (CUTOFF=25); URINE AMPHETAMINES NEGATIVE ng/ml (CUTOFF=500); URINE BARBITURATES NEGATIVE ng/ml (CUTOFF=200); URINE BENZODIAZEPINES NEGATIVE ng/ml (CUTOFF=200)
[2018-10-29 19:11] LABS: ALBUMIN 2.6 g/dl (3.4-5.0); ALK PHOS 144 U/L (45-117); ANION GAP 13 MMOL/L (8-16); CALCIUM 8.3 mg/dL (8.5-10.1); CHLORIDE 104 mmol/L (98-107); CO2 19 mmol/L (21-32); CREATININE 2.8 mg/dL (0.55-1.3); GLUCOSE,RANDOM 64 mg/dL (74-106); LIPASE 80 U/L (73-393); SGOT/AST 56 U/L (15-37); SGPT/ALT 50 U/L (13-61); SODIUM 137 mmol/L (136-145); TOT PROT 5.6 g/dl (6.4-8.2)
[2018-10-29 19:18] LABS: INR 1.49 (0.83-1.09); PROTHROMBIN TIME (PATIENT) 17.6 SEC (9.7-13.0)
--- NOTE | 2018-10-29 19:24 | PDOC ---
Documentation entered by Natali Hatfield SCRIBE, acting as scribe for Greer Merchant DO. Greer Merchant DO: This documentation has been prepared by the Liu easley Sammi, SCRIBE, under my direction and personally reviewed by me in its entirety. I confirm that the documentation accurately reflects all work, treatment, procedures, and medical decision making performed by me. Attending Attestation - Resident Resident Name: Sultana Ladd - ED Attending Attestation I have performed the following: I have examined & evaluated the patient, The case was reviewed & discussed with the resident, I agree w/resident's findings & plan, Exceptions are as noted - HPI HPI: 10/29/18 18:44 The patient is an unresponsive 67 year old male, with a significant PMH of alcohol abuse (currently 7 days sober), who presents to the emergency department from [facility] for evaluation of altered mental status. As per nurse at [facility], the patient was unresponsive to name and was facing nurse when he went to the ground in the position. The nurse reports the patient hit his head when he went down to the ground. The patient is not responsive and cannot provide a history. - Physicial Exam PE: 10/29/18 18:43 GENERAL: Agitated, aggressive, does not follow commands, non-verbal, not able to give history HEAD: (+) Right temporal area ecchymosis with abrasion EYES: (+)Pupils small. sclera anicteric, conjunctiva clear ENT: (+) Dry mucous membranes. Auricles normal inspection, hearing grossly normal, nares patent, oropharynx clear without exudates. NECK: Normal ROM, supple, no lymphadenopathy, JVD, or masses BACK: Left flank to pelvis ecchymosis LUNGS: Breath sounds equal, clear to auscultation bilaterally. No wheezes, and no crackles HEART: (+)Tachycardic, normal S1 and S2, no murmurs, rubs or gallops ABDOMEN: Soft, nontender, normoactive bowel sounds. No guarding, no rebound. No masses EXTREMITIES: (+) right knee anterior abrasion. (+) Left medial knee diffuse ecchymosis. Normal range of motion, no edema. No clubbing or cyanosis. NEUROLOGICAL: Responsive to pain SKIN: Warm, Dry, normal turgor, no rashes or lesions noted - Critical Care Time Total Critical Care Time: 60 Critical Care Statement: The care of this patient involved high complexity decision making to prevent further life threatening deterioration of the patient 's condition and/or to evaluate & treat vital organ system(s) failure or risk of failure. - Medical Decision Making 10/29/18 19:05 I, Dr. Greer Merchant, DO, attest that this document has been prepared under my direction and personally reviewed by me in its entirety. I further attest, that it accurately reflects all work, treatment, procedures and medical decision -making performed by me. 10/29/18 19:05 a/p: 67yo male from [facility] after being in detox/rehab for etoh use -pt arrives from [facility], thrashing in the bed, not following commands, abrasions to face, knee, hematomas to abd/knee, face -pt with hx of etoh use -pt with acute change in ms at [facility] -pt currently nonverbal, very agitated -pt intubated for airway protection -pt sent for head, c spine, c/a/p ct scans -will send labs, cultures, pt will need admission -concern for intraabd bleeding, intracranial bleeding 10/29/18 19:27 pt with altered ms, elevated wbc, elevated lactate ivf hydration running, will start broad spectrum abx, will also covered for meningitis given altered ms -will add decadron 10/29/18 19:33 rectal temp 96.9 10/29/18 20:[address] Shanks - radiology acute infarcts b/l kidneys pt in aflutter - concern for clots going to brain -? cva with conversion or cortical hematoma from the fall concern for throwing clots from new onset aflutter pt with FARIDEH call placed to ICU resident, cardiology, nephrology, neurology 10/29/18 20:[address] Louis - does not want the patient anticoag given small hemorrhage in the brain, from neuro point of view, however need to consider other organs 10/29/18 20:50 call placed [address] [facility] given multiple multiple organs involved pt is intubated case discussed with Dr[facility] at [facility] who accepts pt to service and in transfer resident discussed the case with Dr. Ashton from cards 10/29/18 21:48 chronic and subacute vertebral compression fxs old rib fx slenic artery aneurysm pneumobilia on ct pt will be transferred to the MICU 10/29/18 21:59 pt pending transfer to [facility] for MICU admission *DC/Admit/Observation/Transfer Diagnosis at time of Disposition: Renal infarction, Atrial flutter with rapid ventricular response, FARIDEH (acute kidney injury), Alcohol use disorder, Ventilator dependent, Splenic artery aneurysm, Thoracic vertebral fracture Altered mental status Qualifiers: Altered mental status type: unspecified Qualified Code(s): R41.82 - Altered mental status, unspecified Multiple fractures of ribs of both sides Qualifiers: Fracture type: closed - Discharge Dispostion Disposition: TRANSFER ACUTE CARE/OTHER HOSP Condition at time of disposition: Guarded - Referrals - Patient Instructions - Post Discharge Activity Heart Score/ECG Review - ECG Intrepretation Comment:: 10/29/18 20:28 aflutter at 112, low voltage, q waves anterior leads which are age indeterminate , abnl ekg
[2018-10-29 19:27] LABS: EPI CELLS 3.2 /HPF (0-5/HPF); HYALINE CASTS 43 /lpf (0-8); URINE APPEARANCE CLOUDY; URINE BACTERIA 1.9 /hpf (NEGATIVE); URINE BILIRUBIN 1+ (NEGATIVE); URINE COLOR DK YELLOW; URINE GLUCOSE (UA) NEGATIVE (NEGATIVE); URINE KETONE NEGATIVE (NEGATIVE); URINE LEUK ESTERASE NEGATIVE (NEGATIVE); URINE NITRITE NEGATIVE (NEGATIVE); URINE PROTEIN 1+ (NEGATIVE); URINE RBC 4 /hpf (0-4); URINE WBC 4 /hpf (0-5)
[2018-10-29] MEDS ORDERED: CEFTRIAXONE 2,000 MG in DEXTROSE 5%-WATER - 50 ML IVPB ONE (20:01)
[2018-10-29] MEDS ORDERED: DEXAMETHASONE SOD PHOSPHATE 10 MG/1 ML VIAL IVPUSH ONE (20:01)
[2018-10-29] MEDS ORDERED: VANCOMYCIN HCL 1,500 MG in DEXTROSE 5%-WATER - 500 ML IVPB ONE (20:02)
[2018-10-29 20:08] LABS: PLATELET ESTIMATE SLT DECREASE
[2018-10-29 20:19] LABS: BASO % 0.2 % (0-2.0); EOS % 0.6 % (0-4.5); HEMATOCRIT 51.4 % (35.4-49); HEMOGLOBIN 16.5 GM/dL (11.7-16.9); LYMPH % 1.4 % (8-40); MCH 30.7 pg (25.7-33.7); MCHC 32.1 g/dl (32.0-35.9); MEAN CELL VOLUME 95.6 fl (80-96); MEAN PLT VOLUME 10.2 fl (7.5-11.1); MONO % 0.8 % (3.8-10.2); PLATELET COUNT 114 K/MM3 (134-434); RBC 5.38 M/mm3 (4.00-5.60); RDW 16.4 % (11.9-15.9); WHITE BLOOD COUNT 28.3 K/mm3 (4.0-10.0)
[2018-10-29] MEDS ORDERED: DEXAMETHASONE SOD PHOSPHATE 10 MG/1 ML VIAL ONE (20:38)
[2018-10-29] MEDS ORDERED: CEFTRIAXONE 2 GM/100 ML BAG IVPB ONE (20:38)
--- NOTE | 2018-10-29 20:38 | PN ---
Teaching Attending Note Name of Resident: Bushra Trung Tylor ATTENDING PHYSICIAN STATEMENT I saw and evaluated the patient. I reviewed the resident's note and discussed the case with the resident. I agree with the resident's findings and plan as documented. SUBJECTIVE: OBJECTIVE: HEENT: No Jaundice, eye redness or discharge, PERRLA, EOMI. Normocephalic, atraumatic. External ears are normal and hearing is grossly intact. No nasal discharge. Neck: Supple, nontender. No palpable adenopathy or thyromegaly. No JVD Chest: Good effort. Clear to auscultation and percussion. Heart: Regular. No S3, rub or murmur Abdomen: Not distended, soft, nontender and no HSM. No rebound or guarding. Normal bowel sounds. Ext: Peripheral pulses intact. No leg edema. Skin: Warm and dry. No petechiae, rash or ecchymosis. Neuro: Alert. Oriented x3. CN 2-12 grossly intact. Sensation grossly intact in all four extremities and DTR are symmetric. Psych: Appropriate mood and affect. Good insight. Hypoalbuminemia - Possibly due to combined effects of malnutrition and inflammation associated with comorbid chronic conditions. Will ensure adequate dietary protein intake and also consult bookkeeping assistant. DM For now, we will hold the home diabetes drugs and implement sliding scale insulin regimen. Provide comprehensive diabetes care with patient teaching and counseling about the importance of adherence to prescribed diabetes regimen, euglycemia, eye care and foot care. Tobacco Use Counseled on risks associated with tobacco use. We will provide patient all the necessary assistance to facilitate smoking cessation and prescribe Nicotine patch. Will consult nephrology and avoid nephrotoxic agents such as NSAIDS, aminoglycosides, contrast dyes and certain Alternative medicine products. Anemia - Do basic anemia work up including serial stool guaiacs, reticulocyte count and iron studies. Would benefit from Procrit therapy once iron replete. Obesity Counseled on the risks associated with obesity. Will provide patient all the necessary assistance, counseling and positive reinforcement to facilitate weight loss. Consult bookkeeping assistant. Alcohol abuse - Implement [facility] alcohol withdrawal protocol and do neurochecks. Implement seizure, fall and aspiration precautions. Treat with thiamine and folic acid and monitor electrolytes (Ca,Mg,K,P). Counseled patient about abstaining from alcohol. Will consult explosive ordnance disposal specialist and refer to alcohol detox upon discharge. Hypertension - Restart suitable outpatient antihypertensive drugs when clinically appropriate. Revise regimen to ensure good BP control. Nonpharmacologic measures to control hypertension like weight loss, salt restriction and exercise discussed. DVT prophylaxis - Lovenox 40 mg SQ q 24 hours. Heparin 5000u sq tid. Advance directives - Full code ASSESSMENT AND PLAN:
[2018-10-29 20:56] LABS: ALBUMIN 2.6 g/dl (3.4-5.0); BILIRUBIN,TOTAL 2.5 mg/dL (0.2-1); BLOOD UREA NITROGEN 93.2 mg/dL (7-18); CALCIUM 7.5 mg/dL (8.5-10.1); CREATININE 2.7 mg/dL (0.55-1.3); MAGNESIUM 2.6 mg/dL (1.8-2.4); POTASSIUM 5.2 mmol/L (3.5-5.1); TOT PROT 5.7 g/dl (6.4-8.2)
[2018-10-29 21:29] LABS: PLATELET ESTIMATE DECREASED
[2018-10-29 22:09] LABS: ARTERIAL BLD GAS O2 SATURATION 99.2 % (95-98); ARTERIAL BLOOD GAS BASE EXCESS -14.2 meq/l (-2-2); ARTERIAL BLOOD GAS PCO2 49.8 mmHg (35-45); ARTERIAL BLOOD GAS PO2 320 mmHg (80-105); CARBOXYHEMOGLOBIN 0.5 % (0-2)
[2018-10-29 22:11] LABS: ALLENS TEST POSITIVE
[2018-10-29 23:21] LABS: ARTERIAL BLOOD GAS pH 7.12 (7.35-7.45)
[2018-10-30 00:44] VITALS: PULSE 105
[2018-10-30 01:01] VITALS: BP 103/84
--- NOTE | 2018-10-30 12:31 | EKG ---
Test Reason : Blood Pressure : / mmHG Vent. Rate : 112 BPM Atrial Rate : 224 BPM P-R Int : 000 ms QRS Dur : 096 ms QT Int : 336 ms P-R-T Axes : -81 000 002 degrees QTc Int : 458 ms ATRIAL FLUTTER WITH 2:1 A-V CONDUCTION LOW VOLTAGE QRS CANNOT RULE OUT ANTEROSEPTAL INFARCT , AGE UNDETERMINED ABNORMAL ECG WHEN COMPARED WITH ECG OF 25-JUL-2017 21:12, ATRIAL FLUTTER HAS REPLACED SINUS RHYTHM VENT. RATE HAS INCREASED BY 38 BPM MINIMAL CRITERIA FOR ANTEROSEPTAL INFARCT ARE NOW PRESENT ST NOW DEPRESSED IN INFERIOR LEADS ST NOW DEPRESSED IN LATERAL LEADS Confirmed by TA CUETO, DORI ([id number]) on 10/30/2018 12:31:16 PM Referred By: Confirmed By:DORI CHAPPELL MD
== END 2018-10-30 00:46 | disposition short-term general hospital (02) ==
LOC: JER 17:11
DX: R41.82 Altered mental status, unspecified (principal); S09.8XXA Other specified injuries of head, initial encounter; S22.049A Unspecified fracture of fourth thoracic vertebra, initial encounter for closed fracture; S22.43XA Multiple fractures of ribs, bilateral, initial encounter for closed fracture; I72.8 Aneurysm of other specified arteries; I48.92 Unspecified atrial flutter; I10 Essential (primary) hypertension; N17.9 Acute kidney failure, unspecified; F10.20 Alcohol dependence, uncomplicated; E11.9 Type 2 diabetes mellitus without complications; Z79.84 Long term (current) use of oral hypoglycemic drugs; K70.30 Alcoholic cirrhosis of liver without ascites; I95.9 Hypotension, unspecified; R78.81 Bacteremia; N28.0 Ischemia and infarction of kidney; T14.90XA Injury, unspecified, initial encounter; W19.XXXA Unspecified fall, initial encounter; Z91.81 History of falling; Y93.89 Activity, other specified; Y92.238 Other place in hospital as the place of occurrence of the external cause; Y99.8 Other external cause status
CPT/HCPCS: 36415; 36600; 70450-TC; 70486-TC; 71045-TC-FY; 71275-TC; 72125-TC; 74174-TC; 80053; 80307; 81003; 82140; 82375; 82550; 82553; 82803; 82962; 83050; 83605; 83690; 83735; 84484; 85025; 85610; 86850; 86900; 86901; 87040; 87086; 87186; 90715; 93005; 93010; 99285-25; J1100; J7030